=== PATIENT | female | born 1970 | race Caucasian/White ===

== ENCOUNTER 2019-05-26 10:14 | Inpatient (IN) | payer OTHER ==
[2019-05-26 11:21] VITALS: BMI 50.1
--- NOTE | 2019-05-26 12:54 | HP ---
CIWA Score Nausea/Vomitin Muscle Tremors: 3 Anxiety: 3 Agitation: 3 Paroxysmal Sweats: 1-Minimal Palms Moist Orientation: 0-Oriented Tacttile Disturbances: 1-Very Mild Itch/Numbness Auditory Disturbances: 0-None Visual Disturbances: 0-None Headache: 2-Mild CIWA-Ar Total Score: 15 - Admission Criteria OASAS Guidelines: Admission for Medically Managed Detox: Requires at least one of the followin. CIWA greater than 12 2. Seizures within the past 24 hours 3. Delirium tremens within the past 24 hours 4. Hallucinations within the past 24 hours 5. Acute intervention needed for co occurring medical disorder 6. Acute intervention needed for co occurring psychiatric disorder 7. Severe withdrawal that cannot be handled at a lower level of care (continued vomiting, continued diarrhea, abnormal vital signs) requiring intravenous medication and/or fluids 8. 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 Cardiovascular: Yes: HTN, Hyperlipdemia Pulmonary: Yes: Asthma, Other ...LMP: 04/05/19 ...: No Psych: Yes: Depression - Past Surgical History Additional Past Surgical History: lung surgery right with chest tube for pneumonia in 07/10 [facility], in 07/10 and [facility] arthroscopic surgery in 11/07 left knee - Smoking History Smoking history: Current every day smoker Have you smoked in the past 12 months: Yes Aproximately how many cigarettes per day: 5 - Alcohol/Substance Use Hx Alcohol Use: Yes History of Substance Use: reports: None - Social History Usual Living Arrangement: Yes: With Significant Other ADL: Independent History of Recent Travel: No Admission ROS S - HPI Chief Complaint: I need help to stop drinking alcohol Allergies/Adverse Reactions: Allergies Allergy/AdvReac Type Severity Reaction Status Date / Time No Known Allergies Allergy Verified 05/26/19 11:15 History of Present Illness: this 48 years old female with alcohol dependence,seeking detox,withdrawal symptom,last detox 10 years ago syncope denied seizure obesity hypertension,hypercholesterolemia longest sobriety 10 years history of right lung surgery,arthroscopic surgery left knee ambulation with cane - Ebola screening Have you traveled outside of the country in the last 21 days: No (N) Have you had contact with anyone from an Ebola affected area: No Do you have a fever: No - Review of Systems Constitutional: Night Sweats EENT: reports: Nose Congestion Respiratory: reports: Other (asthma surger of right lung) Cardiac: reports: Palpitations GI: reports: Nausea, Poor Appetite, Abdominal cramping : reports: No Symptoms Reported Musculoskeletal: reports: Back Pain (arthritis both knees s/p arthroscopic surgery left knee), Muscle Pain Integumentary: reports: Dryness Neuro: reports: Headache, Tremors Endocrine: reports: No Symptoms Reported Hematology: reports: No Symptoms Reported Psychiatric: reports: No Sypmtoms Reported, Judgement Intact, Mood/Affect Appropiate, Orientated x3, Depressed Other Systems: Reviewed and Negative Patient History - Patient Medical History Hx Anemia: No Hx Asthma: Yes (on albuterol inhaler) Hx Chronic Obstructive Pulmonary Disease (COPD): No Hx Cancer: No Hx Cardiac Disorders: No Hx Congestive Heart Failure: No Hx Hypertension: Yes (on med) Hx Hypercholesterolemia: Yes (on med) Hx Pacemaker: No HX Cerebrovascular Accident: No Hx Seizures: No Hx Dementia: No Hx Diabetes: No Hx Gastrointestinal Disorders: No Hx Liver Disease: No Hx Genitourinary Disorders: No Hx Sexually Transmitted Disorders: No Hx Renal Disease (ESRD): No Hx Thyroid Disease: No Hx Human Immunodeficiency Virus (HIV): No (09/07 negative) Hx Hepatitis C: No Hx Depression: Yes Hx Suicide Attempt: No Hx Bipolar Disorder: No Hx Schizophrenia: No Other Medical History: no suicidal,no homicidal,arthritis ,s/p suery left knee, right lung surgery - Patient Surgical History Past Surgical History: Yes Hx Lung Surgery: Yes (right post pneumona,chest tubes) Hx Orthopedic Surgery: Yes (arthroscopic surgery left) - PPD History Previous Implant?: Yes Documented Results: Positive w/o proof Implanted On Prior R Admission?: No PPD to be Administered?: No - Reproductive History Patient is a Female of Child Bearing Age (11 -55 yrs old): Yes Last Menstrual Period: 03/05/19 Patient : No - Smoking Cessation Smoking history: Current every day smoker Have you smoked in the past 12 months: Yes Aproximately how many cigarettes per day: 10 Cigars Per Day: 0 Initiated information on smoking cessation: Yes 'Breaking Loose' booklet given: 05/27/19 - Substance & Tx. History Hx Alcohol Use: Yes Hx Substance Use: No Substance Use Type: Alcohol Hx Substance Use Treatment: Yes (2008) - Substances abused Alcohol Substance route: Oral Frequency: Daily Amount used: 2qts of Marnie/day Age of first use: 14 Date of last use: 05/26/19 Admission Physical Exam [facility] - Vital Signs Vital Signs: Vital Signs - 24 hr 05/26/19 11:17 Temperature 97.6 F Pulse Rate 101 H Respiratory 18 Rate Blood Pressure 146/94 - Physical General Appearance: Yes: Moderate Distress, Tremorous, Irritable, Sweating, Anxious HEENTM: Yes: Normal ENT Inspection, KANWAL, Pharynx Normal Respiratory: Yes: Wheezing, Surgical Scar (scar in right chest posterior scar bilaterl chest tubes) Neck: Yes: No masses,lesions,Nodules, Supple, Trachea in good position Breast: Yes: Breast Exam Deferred Cardiology: Yes: Tachycardia Abdominal: Yes: Within Normal Limits, Normal Bowel Sounds, Non Tender, Soft Genitourinary: Yes: Within Normal Limits Back: Yes: Muscle Spasm Musculoskeletal: Yes: Back pain, Joint Stiffness, Muscle Pain Extremities: Yes: Tremors 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 intact, Fully Oriented, Alert, Motor Strength 5/5 Integumentary: Yes: Dry Lymphatic: Yes: Within Normal Limits - Diagnostic (1) Alcohol dependence with uncomplicated withdrawal Current Visit: Yes Status: Acute (2) Syncope Current Visit: Yes Status: Acute (3) Obesity Current Visit: Yes Status: Acute (4) Essential hypertension Current Visit: Yes Status: Acute (5) Hypercholesterolemia Current Visit: Yes Status: Acute (6) Asthma Current Visit: Yes Status: Acute (7) Arthritis of both knees Current Visit: Yes Status: Acute (8) H/O left knee surgery Current Visit: Yes Status: Acute (9) Nicotine dependence Current Visit: Yes Status: Acute (10) Use of cane as ambulatory aid Current Visit: Yes Status: Acute Cleared for Admission [facility] - Detox or Rehab [facility] Level of Care: Medically Managed Detox Regimen/Protocol: Librium Breathalyzer - Breathalyzer Breathalyzer: 0.205 Urine Drug Screen - Test Device Lot number: [id number] Expiration date: 02/18/21 - Control Is test valid?: Yes - Results Drug screen NEGATIVE: Yes Inpatient Rehab Admission - Rehab Decision to Admit Inpatient rehab admission?: No
[2019-05-26] MEDS ORDERED: chlordiazePOXIDE HCL 25 MG CAPSULE PO PRN (13:24)
[2019-05-26] MEDS ORDERED: MENTHOL/PHENOL 1 EACH UD MM PRN (13:24)
[2019-05-26] MEDS ORDERED: MAG HYDROX/AL HYDROX/SIMETH 30 ML UNIT-DOSE CUP PO PRN (13:24)
[2019-05-26] MEDS ORDERED: ACETAMINOPHEN 325 MG TABLET (FP) PO PRN (13:24)
[2019-05-26] MEDS ORDERED: MAGNESIUM HYDROX 2400MG/30ML ORAL SUSPENSION 30 ML CUP PO PRN (13:24)
[2019-05-26] MEDS ORDERED: MAGNESIUM CITRATE 300 ML BOTTLE PO PRN (13:24)
[2019-05-26] MEDS ORDERED: predniSONE 20 MG TABLET (UD) PO ONE ×2 (13:31→13:35)
[2019-05-26] MEDS ORDERED: ALBUTEROL SO4 2.5/IPRATROPIUM 0.5 INH SOL 3 ML VIAL.NEB. NEB PRN (13:31)
[2019-05-26] MEDS ORDERED: predniSONE 10 MG TABLET (UD) PO ONE (13:32)
[2019-05-26] MEDS: LISINOPRIL 10 MG TABLET (FP) PO SCH (14:59)
[2019-05-26] MEDS: NICOTINE 14 MG/24 HOURS TOPICAL PATCH TD SCH (15:00)
[2019-05-26] MEDS: chlordiazePOXIDE HCL 25 MG CAPSULE PO SCH ×2 (17:28→22:18)
[2019-05-26] MEDS: ALBUTEROL SO4 8 GM HFA INHALER IH PRN (21:35)
[2019-05-26] MEDS: ATORVASTATIN CA 20 MG TABLET (FP) PO SCH (22:18)
[2019-05-26] MEDS: THIAMINE HCL 100 MG TABLET (FP) PO SCH (22:18)
[2019-05-26] MEDS: MELATONIN 5 MG TABLETS PO PRN (22:19)
[2019-05-27] MEDS: chlordiazePOXIDE HCL 25 MG CAPSULE PO SCH ×4 (05:46→22:22)
[2019-05-27] MEDS: ALBUTEROL SO4 8 GM HFA INHALER IH PRN ×2 (05:48→17:09)
[2019-05-27 09:56] LABS: HEMATOCRIT 41.7 % (32.4-45.2); HEMOGLOBIN 13.7 GM/dL (10.7-15.3); MCH 29.5 pg (25.7-33.7); MCHC 32.9 g/dl (32.0-36.0); MEAN CELL VOLUME 89.8 fl (80-96); MEAN PLT VOLUME 9.4 fl (7.5-11.1); PLATELET COUNT 190 K/MM3 (134-434); RBC 4.65 M/mm3 (3.60-5.2); RDW 14.6 % (11.6-15.6); WHITE BLOOD COUNT 7.3 K/mm3 (4.0-10.0)
[2019-05-27] MEDS ORDERED: predniSONE 20 MG TABLET (UD) PO ONE (10:00)
[2019-05-27] MEDS ORDERED: predniSONE 10 MG TABLET (UD) PO ONE (10:00)
[2019-05-27 10:04] LABS: ALBUMIN 3.3 g/dl (3.4-5.0); BILIRUBIN,TOTAL 0.6 mg/dL (0.2-1); BLOOD UREA NITROGEN 17.6 mg/dL (7-18); CREATININE 0.8 mg/dL (0.55-1.3); POTASSIUM 3.4 mmol/L (3.5-5.1); TOT PROT 7.4 g/dl (6.4-8.2)
--- NOTE | 2019-05-27 10:09 | EKG ---
Test Reason : Blood Pressure : / mmHG Vent. Rate : 101 BPM Atrial Rate : 101 BPM P-R Int : 166 ms QRS Dur : 094 ms QT Int : 372 ms P-R-T Axes : 064 071 048 degrees QTc Int : 482 ms SINUS TACHYCARDIA OTHERWISE NORMAL ECG NO PREVIOUS ECGS AVAILABLE Confirmed by EHSAN PALMER MD ([id number]) on 05/27/2019 10:08:50 AM Referred By: Eulalio Marina Confirmed By:EHSAN PALMER MD
--- NOTE | 2019-05-27 10:23 | PN ---
S CIWA - CIWA Score Nausea/Vomitin-Mild Nausea/No Vomiting Muscle Tremors: 4-Moderate,w/Arms Extend Anxiety: 3 Agitation: 1-Slight > Activity Paroxysmal Sweats: 2 Orientation: 1-Uncertain about Date Tacttile Disturbances: 0-None Auditory Disturbances: 0-None Visual Disturbances: 0-None Headache: 1-Very Mild CIWA-Ar Total Score: 13 BHS Progress Note (SOAP) Subjective: 48 years old female admitted on 05/26/19 for alcohol withdrawal sx management treating with librium detox regimen ambulating with cane steady gait reports skip antihypertensant while drinking alcohol health teaching on risks of bp elevation Objective: 05/27/19 10:22 Vital Signs Temperature 98.1 F 05/27/19 09:09 Pulse Rate 110 H 05/27/19 09:09 Respiratory Rate 18 05/27/19 09:09 Blood Pressure 149/84 05/27/19 09:09 O2 Sat by Pulse Oximetry (%) Laboratory Last Values WBC 7.3 K/mm3 (4.0-10.0) 05/27/19 08:15 RBC 4.65 M/mm3 (3.60-5.2) 05/27/19 08:15 Hgb 13.7 GM/dL (10.7-15.3) 05/27/19 08:15 Hct 41.7 % (32.4-45.2) 05/27/19 08:15 MCV 89.8 fl (80-96) 05/27/19 08:15 MCH 29.5 pg (25.7-33.7) 05/27/19 08:15 MCHC 32.9 g/dl (32.0-36.0) 05/27/19 08:15 RDW 14.6 % (11.6-15.6) 05/27/19 08:15 Plt Count 190 K/MM3 (134-434) 05/27/19 08:15 MPV 9.4 fl (7.5-11.1) 05/27/19 08:15 Sodium 137 mmol/L (136-145) 05/27/19 08:15 Potassium 3.4 mmol/L (3.5-5.1) L 05/27/19 08:15 Chloride 99 mmol/L (98-107) 05/27/19 08:15 Carbon Dioxide 29 mmol/L (21-32) 05/27/19 08:15 Anion Gap 9 MMOL/L (8-16) 05/27/19 08:15 BUN 17.6 mg/dL (7-18) 05/27/19 08:15 Creatinine 0.8 mg/dL (0.55-1.3) 05/27/19 08:15 Est GFR (CKD-EPI)AfAm 100.33 05/27/19 08:15 Est GFR (CKD-EPI)NonAf 86.57 05/27/19 08:15 Random Glucose 172 mg/dL (74-106) H 05/27/19 08:15 Calcium 9.0 mg/dL (8.5-10.1) 05/27/19 08:15 Total Bilirubin 0.6 mg/dL (0.2-1) 05/27/19 08:15 AST 33 U/L (15-37) 05/27/19 08:15 ALT 49 U/L (13-61) 05/27/19 08:15 Alkaline Phosphatase 134 U/L (45-117) H 05/27/19 08:15 Total Protein 7.4 g/dl (6.4-8.2) 05/27/19 08:15 Albumin 3.3 g/dl (3.4-5.0) L 05/27/19 08:15 Triglycerides 351 mg/dL (0-150) H 05/27/19 08:15 Cholesterol 147 mg/dL (50-200) 05/27/19 08:15 Total LDL Cholesterol 36 mg/dL (5-100) 05/27/19 08:15 HDL Cholesterol 51 mg/dL (40-60) 05/27/19 08:15 POC Urine HCG, Qual Negative 05/26/19 13:24 lab noted triglycerides elevation treating with lipitor 20 mg po hs 05/27/19 10:24 Assessment: 05/27/19 10:24 alcohol withdrawal Plan: librium regimen
[2019-05-27] MEDS: LISINOPRIL 10 MG TABLET (FP) PO SCH (10:51)
[2019-05-27] MEDS: NICOTINE 14 MG/24 HOURS TOPICAL PATCH TD SCH (10:51)
[2019-05-27] MEDS: PRENATAL VITAMINS W/ FOLIC ACID TABLET (FP) PO SCH (10:51)
[2019-05-27] MEDS: amLODIPine BESYLATE 10 MG TABLET (FP) PO SCH (10:51)
[2019-05-27] MEDS ORDERED: cloNIDine HCL 0.1 MG TABLET PO PRN (11:04)
[2019-05-27] MEDS ORDERED: PNEUMOCOCCAL 23 VACCINE 0.5 ML VIAL IM ONE (12:00)
[2019-05-27] MEDS ORDERED: PNEUMOC 13-VAL CONJ-DIP CRM/PF 0.5 ML DISP.SYRIN IM ONE (12:00)
--- NOTE | 2019-05-27 15:04 | CONSULT ---
[facility] Psychiatric Consult - Data Date of interview: 05/27/19 Admission source: [facility] Identifying data: First visit to [facility] and admission to [address] [place] [address] for this 48 y/o female self-referred for detoxification treatment (ESDRAS issue s : alcohol, nicotine). Patient is single, mother of two, domiciled and currently employed. Substance Abuse History: Discussed with the patient. Details in current [facility] report as follows : Smoking history: Current every day smoker. Have you smoked in the past 12 months: Yes. Aproximately how many cigarettes per day: 10. Cigars Per Day: 0. Initiated information on smoking cessation: Yes. 'Breaking Loose' booklet given: 05/27/19. - Substance & Tx. History. Hx Alcohol Use: Yes. Hx Substance Use: No. Substance Use Type: Alcohol. Hx Substance Use Treatment: Yes (2008). - Substances abused. Alcohol. Substance route: Oral. Frequency: Daily. Amount used: 2qts of Marnie/day. Age of first use: 14. Date of last use: 05/26/19 Medical History: Medical profile is remarkable for morbid obesity, dyslipidemia , bronchial asthma, hypertension, sleep apnea, antecedent of right lung surgery (pneumonia in 2019) and orthosurgery (arthroscopy of left knee). Patient ambulates with a cane. Psychiatric History: Patient denies history of psychiatric hospitalizations. Diagnosed, in the past, with MDD and Anxiety Disorder, and medicated with citalopram 20 mg/day (prescribed by Dr Riojas, primary care physician at [facility] Ms Shelton admits to a distant history of suicide attempt via wrist-cutting (age 17). Physical/Sexual Abuse/Trauma History: Patient denies. Additional Comment: Negative toxicology. Mental Status Exam - Mental Status Exam Alert and Oriented to: Time, Place, Person Cognitive Function: Good Patient Appearance: Well Groomed (obese) Mood: Hopeful, Euthymic Affect: Appropriate, Normal Range Patient Behavior: Fatigued, Appropriate, Cooperative Speech Pattern: Clear, Appropriate Voice Loudness: Normal Thought Process: Intact, Goal Oriented Thought Disorder: Not Present Hallucinations: Denies Suicidal Ideation: Denies Homicidal Ideation: Denies Insight/Judgement: Fair Sleep: Well Appetite: Good Gait/Station: Other (walks witth cane) Psychiatric Findings - Problem List ([place] 1, 2,3) (1) Alcohol dependence with uncomplicated withdrawal Current Visit: Yes Status: Acute (2) Nicotine dependence Current Visit: Yes Status: Chronic (3) History of depression Current Visit: Yes Status: Chronic Comment: On citalopram 20 mg/day. - Initial Treatment Plan Initial Treatment Plan: Psychoeducation. Sleep hygiene. Detoxification in progress. Support. AA meetings. MAT services explained to patient. Resumed : celexa 20 mg po daily. Side effects/benefits discussed with patient. Ms Shelton is in agreement with this plan of care. Gave informed consent (verbal) to MD. Lao.
[2019-05-27 15:13] LABS: EPI CELLS 33.5 /HPF (0-5/HPF); HYALINE CASTS 22 /lpf (0-8); PH,URINE 6.5 (5.0-8.0); URINE APPEARANCE CLOUDY; URINE BACTERIA 906.8 /hpf (NEGATIVE); URINE BILIRUBIN NEGATIVE (NEGATIVE); URINE COLOR DK YELLOW; URINE GLUCOSE (UA) NEGATIVE (NEGATIVE); URINE KETONE TRACE (NEGATIVE); URINE LEUK ESTERASE NEGATIVE (NEGATIVE); URINE NITRITE NEGATIVE (NEGATIVE); URINE PROTEIN 1+ (NEGATIVE); URINE RBC 3 /hpf (0-4); URINE WBC 4 /hpf (0-5)
[2019-05-27 15:44] LABS: URINE CRYSTALS NEGATIVE /hpf
[2019-05-27] MEDS: hydrOXYzine PAMOATE 25 MG CAPSULE (FP) PO PRN (17:09)
[2019-05-27] MEDS: MELATONIN 5 MG TABLETS PO PRN (22:22)
[2019-05-27] MEDS: THIAMINE HCL 100 MG TABLET (FP) PO SCH (22:22)
[2019-05-27] MEDS: ATORVASTATIN CA 20 MG TABLET (FP) PO SCH (22:22)
[2019-05-28] MEDS: chlordiazePOXIDE HCL 25 MG CAPSULE PO SCH ×4 (05:16→22:09)
[2019-05-28] MEDS ORDERED: predniSONE 20 MG TABLET (UD) PO ONE (10:00)
[2019-05-28] MEDS: CITALOPRAM HYDROBROMIDE 20 MG TABLET (FP) PO SCH (10:12)
[2019-05-28] MEDS: amLODIPine BESYLATE 10 MG TABLET (FP) PO SCH (10:12)
[2019-05-28] MEDS: PRENATAL VITAMINS W/ FOLIC ACID TABLET (FP) PO SCH (10:12)
[2019-05-28] MEDS: LISINOPRIL 10 MG TABLET (FP) PO SCH (10:12)
[2019-05-28] MEDS: ALBUTEROL SO4 8 GM HFA INHALER IH PRN (10:14)
[2019-05-28] MEDS: NICOTINE 14 MG/24 HOURS TOPICAL PATCH TD SCH (10:14)
[2019-05-28] MEDS ORDERED: LOPERAMIDE HCL 2 MG CAPSULE PO ONE (10:18)
[2019-05-28] MEDS: BISMUTH SUBSALICYLATE 524 MG/30 ML UD PO PRN ×2 (10:23→22:11)
--- NOTE | 2019-05-28 12:12 | PN ---
[facility] CIWA - CIWA Score Nausea/Vomitin-No Nausea/No Vomiting Muscle Tremors: 3 Anxiety: 3 Agitation: 2 Paroxysmal Sweats: 2 Orientation: 0-Oriented Tacttile Disturbances: 0-None Auditory Disturbances: 0-None Visual Disturbances: 0-None Headache: 0-None Present CIWA-Ar Total Score: 10 S Progress Note (SOAP) Subjective: 48 years old female admitted on 05/26/19 for alcohol withdrawal sx management treating with librium detox regimen c/o loose stool imodium 4 mg po x 1 and maalox 30 ml po x 1 continue pepcid 20mg po bid Objective: 05/28/19 12:23 Vital Signs Temperature 97.0 F L 05/28/19 09:25 Pulse Rate 78 05/28/19 09:25 Respiratory Rate 18 05/28/19 09:25 Blood Pressure 149/96 05/28/19 09:25 O2 Sat by Pulse Oximetry (%) Laboratory Last Values WBC 7.3 K/mm3 (4.0-10.0) 05/27/19 08:15 RBC 4.65 M/mm3 (3.60-5.2) 05/27/19 08:15 Hgb 13.7 GM/dL (10.7-15.3) 05/27/19 08:15 Hct 41.7 % (32.4-45.2) 05/27/19 08:15 MCV 89.8 fl (80-96) 05/27/19 08:15 MCH 29.5 pg (25.7-33.7) 05/27/19 08:15 MCHC 32.9 g/dl (32.0-36.0) 05/27/19 08:15 RDW 14.6 % (11.6-15.6) 05/27/19 08:15 Plt Count 190 K/MM3 (134-434) 05/27/19 08:15 MPV 9.4 fl (7.5-11.1) 05/27/19 08:15 Sodium 137 mmol/L (136-145) 05/27/19 08:15 Potassium 3.4 mmol/L (3.5-5.1) L 05/27/19 08:15 Chloride 99 mmol/L (98-107) 05/27/19 08:15 Carbon Dioxide 29 mmol/L (21-32) 05/27/19 08:15 Anion Gap 9 MMOL/L (8-16) 05/27/19 08:15 BUN 17.6 mg/dL (7-18) 05/27/19 08:15 Creatinine 0.8 mg/dL (0.55-1.3) 05/27/19 08:15 Est GFR (CKD-EPI)AfAm 100.33 05/27/19 08:15 Est GFR (CKD-EPI)NonAf 86.57 05/27/19 08:15 Random Glucose 172 mg/dL (74-106) H 05/27/19 08:15 Calcium 9.0 mg/dL (8.5-10.1) 05/27/19 08:15 Total Bilirubin 0.6 mg/dL (0.2-1) 05/27/19 08:15 AST 33 U/L (15-37) 05/27/19 08:15 ALT 49 U/L (13-61) 05/27/19 08:15 Alkaline Phosphatase 134 U/L (45-117) H 05/27/19 08:15 Total Protein 7.4 g/dl (6.4-8.2) 05/27/19 08:15 Albumin 3.3 g/dl (3.4-5.0) L 05/27/19 08:15 Triglycerides 351 mg/dL (0-150) H 05/27/19 08:15 Cholesterol 147 mg/dL (50-200) 05/27/19 08:15 Total LDL Cholesterol 36 mg/dL (5-100) 05/27/19 08:15 HDL Cholesterol 51 mg/dL (40-60) 05/27/19 08:15 Urine Color Dk yellow 05/27/19 10:45 Urine Appearance Cloudy 05/27/19 10:45 Urine pH 6.5 (5.0-8.0) 05/27/19 10:45 Ur Specific [place] 1.039 (1.010-1.035) H 05/27/19 10:45 Urine Protein 1+ (NEGATIVE) H 05/27/19 10:45 Urine Glucose (UA) Negative (NEGATIVE) 05/27/19 10:45 Urine Ketones Trace (NEGATIVE) H 05/27/19 10:45 Urine Blood Negative (NEGATIVE) 05/27/19 10:45 Urine Nitrite Negative (NEGATIVE) 05/27/19 10:45 Urine Bilirubin Negative (NEGATIVE) 05/27/19 10:45 Urine Urobilinogen 1.0 mg/dL (0.2-1.0) 05/27/19 10:45 Ur Leukocyte Esterase Negative (NEGATIVE) 05/27/19 10:45 Urine WBC (Auto) 4 /hpf (0-5) 05/27/19 10:45 Urine RBC (Auto) 3 /hpf (0-4) 05/27/19 10:45 Urine Casts (Auto) 22 /lpf (0-8) 05/27/19 10:45 U Pathogenic Cast Auto Negative /lpf (NEGATIVE) 05/27/19 10:45 U Epithel Cells (Auto) 33.5 /HPF (0-5/HPF) 05/27/19 10:45 Urine Crystals (Auto) Negative /hpf 05/27/19 10:45 Urine Bacteria (Auto) 906.8 /hpf (NEGATIVE) 05/27/19 10:45 POC Urine HCG, Qual Negative 05/26/19 13:24 RPR Titer Nonreactive (NONREACTIVE) 05/27/19 08:15 lab noted Assessment: 05/28/19 12:26 alcohol withdrawal Plan: librium regimen
[2019-05-28] MEDS ORDERED: MAG HYDROX/AL HYDROX/SIMETH 30 ML UNIT-DOSE CUP PO ONE (12:32)
[2019-05-28] MEDS: FAMOTIDINE 20 MG TABLET PO SCH ×2 (15:07→22:08)
[2019-05-28] MEDS ORDERED: LOPERAMIDE HCL 2 MG CAPSULE PO PRN (17:40)
[2019-05-28] MEDS: THIAMINE HCL 100 MG TABLET (FP) PO SCH (22:08)
[2019-05-28] MEDS: ATORVASTATIN CA 20 MG TABLET (FP) PO SCH (22:08)
[2019-05-28] MEDS: MELATONIN 5 MG TABLETS PO PRN (22:10)
[2019-05-29] MEDS ORDERED: chlordiazePOXIDE HCL 10 MG CAPSULE PO PRN
[2019-05-29] MEDS: chlordiazePOXIDE HCL 10 MG CAPSULE PO SCH ×4 (05:22→22:30)
[2019-05-29] MEDS: ALBUTEROL SO4 8 GM HFA INHALER IH PRN (05:22)
[2019-05-29] MEDS ORDERED: predniSONE 10 MG TABLET (UD) PO ONE (10:00)
[2019-05-29] MEDS: LIDOCAINE 5% TOPICAL PATCH TP SCH (10:09)
[2019-05-29] MEDS: FAMOTIDINE 20 MG TABLET PO SCH ×2 (10:09→22:30)
[2019-05-29] MEDS: LISINOPRIL 10 MG TABLET (FP) PO SCH (10:09)
[2019-05-29] MEDS: NICOTINE 14 MG/24 HOURS TOPICAL PATCH TD SCH (10:09)
[2019-05-29] MEDS: amLODIPine BESYLATE 10 MG TABLET (FP) PO SCH (10:09)
[2019-05-29] MEDS: CITALOPRAM HYDROBROMIDE 20 MG TABLET (FP) PO SCH (10:10)
[2019-05-29] MEDS: PRENATAL VITAMINS W/ FOLIC ACID TABLET (FP) PO SCH (10:10)
--- NOTE | 2019-05-29 11:48 | PN ---
S CIWA - CIWA Score Nausea/Vomitin-No Nausea/No Vomiting Muscle Tremors: 2 Anxiety: 2 Agitation: 2 Paroxysmal Sweats: 1-Minimal Palms Moist Orientation: 0-Oriented Tacttile Disturbances: 1-Very Mild Itch/Numbness Auditory Disturbances: 0-None Visual Disturbances: 0-None Headache: 1-Very Mild CIWA-Ar Total Score: 9 BHS Progress Note (SOAP) Subjective: 48 years old male admitted on 05/26/19 for alcohol withdrawal sx management treating with librium detox regimen reports chronic lower lumbar pain ambulating with cane had anger outburst episode x 1 consult with multidisciplinary team redirectable follow instruction Objective: 05/29/19 11:55 Vital Signs Temperature 97.4 F L 05/29/19 09:11 Pulse Rate 107 H 05/29/19 09:11 Respiratory Rate 20 05/29/19 09:11 Blood Pressure 129/86 05/29/19 09:11 O2 Sat by Pulse Oximetry (%) Laboratory Last Values WBC 7.3 K/mm3 (4.0-10.0) 05/27/19 08:15 RBC 4.65 M/mm3 (3.60-5.2) 05/27/19 08:15 Hgb 13.7 GM/dL (10.7-15.3) 05/27/19 08:15 Hct 41.7 % (32.4-45.2) 05/27/19 08:15 MCV 89.8 fl (80-96) 05/27/19 08:15 MCH 29.5 pg (25.7-33.7) 05/27/19 08:15 MCHC 32.9 g/dl (32.0-36.0) 05/27/19 08:15 RDW 14.6 % (11.6-15.6) 05/27/19 08:15 Plt Count 190 K/MM3 (134-434) 05/27/19 08:15 MPV 9.4 fl (7.5-11.1) 05/27/19 08:15 Sodium 137 mmol/L (136-145) 05/27/19 08:15 Potassium 3.4 mmol/L (3.5-5.1) L 05/27/19 08:15 Chloride 99 mmol/L (98-107) 01/06/20 08:15 Carbon Dioxide 29 mmol/L (21-32) 05/27/19 08:15 Anion Gap 9 MMOL/L (8-16) 05/27/19 08:15 BUN 17.6 mg/dL (7-18) 05/27/19 08:15 Creatinine 0.8 mg/dL (0.55-1.3) 05/27/19 08:15 Est GFR (CKD-EPI)AfAm 100.33 05/27/19 08:15 Est GFR (CKD-EPI)NonAf 86.57 05/27/19 08:15 Random Glucose 172 mg/dL (74-106) H 05/27/19 08:15 Calcium 9.0 mg/dL (8.5-10.1) 05/27/19 08:15 Total Bilirubin 0.6 mg/dL (0.2-1) 05/27/19 08:15 AST 33 U/L (15-37) 05/27/19 08:15 ALT 49 U/L (13-61) 05/27/19 08:15 Alkaline Phosphatase 134 U/L (45-117) H 05/27/19 08:15 Total Protein 7.4 g/dl (6.4-8.2) 05/27/19 08:15 Albumin 3.3 g/dl (3.4-5.0) L 05/27/19 08:15 Triglycerides 351 mg/dL (0-150) H 05/27/19 08:15 Cholesterol 147 mg/dL (50-200) 05/27/19 08:15 Total LDL Cholesterol 36 mg/dL (5-100) 05/27/19 08:15 HDL Cholesterol 51 mg/dL (40-60) 05/27/19 08:15 Urine Color Dk yellow 05/27/19 10:45 Urine Appearance Cloudy 05/27/19 10:45 Urine pH 6.5 (5.0-8.0) 05/27/19 10:45 Ur Specific [place] 1.039 (1.010-1.035) H 05/27/19 10:45 Urine Protein 1+ (NEGATIVE) H 05/27/19 10:45 Urine Glucose (UA) Negative (NEGATIVE) 05/27/19 10:45 Urine Ketones Trace (NEGATIVE) H 05/27/19 10:45 Urine Blood Negative (NEGATIVE) 05/27/19 10:45 Urine Nitrite Negative (NEGATIVE) 05/27/19 10:45 Urine Bilirubin Negative (NEGATIVE) 05/27/19 10:45 Urine Urobilinogen 1.0 mg/dL (0.2-1.0) 05/27/19 10:45 Ur Leukocyte Esterase Negative (NEGATIVE) 05/27/19 10:45 Urine WBC (Auto) 4 /hpf (0-5) 05/27/19 10:45 Urine RBC (Auto) 3 /hpf (0-4) 05/27/19 10:45 Urine Casts (Auto) 22 /lpf (0-8) 05/27/19 10:45 U Pathogenic Cast Auto Negative /lpf (NEGATIVE) 05/27/19 10:45 U Epithel Cells (Auto) 33.5 /HPF (0-5/HPF) 05/27/19 10:45 Urine Crystals (Auto) Negative /hpf 05/27/19 10:45 Urine Bacteria (Auto) 906.8 /hpf (NEGATIVE) 05/27/19 10:45 POC Urine HCG, Qual Negative 05/26/19 13:24 RPR Titer Nonreactive (NONREACTIVE) 05/27/19 08:15 lab noted Assessment: 05/29/19 11:56 alcohol withdrawal Plan: librum regimen
[2019-05-29] MEDS ORDERED: ALBUTEROL SO4 2.5/IPRATROPIUM 0.5 INH SOL 3 ML VIAL.NEB. NEB PRN (13:58)
[2019-05-29] MEDS: IBUPROFEN 400 MG TABLET (FP) PO PRN ×2 (14:38→22:32)
[2019-05-29] MEDS: METHOCARBAMOL 500 MG TABLET PO PRN ×2 (14:39→22:33)
[2019-05-29] MEDS: ACETAMINOPHEN 325 MG TABLET (FP) PO PRN (17:20)
[2019-05-29] MEDS: THIAMINE HCL 100 MG TABLET (FP) PO SCH (22:30)
[2019-05-29] MEDS: ATORVASTATIN CA 20 MG TABLET (FP) PO SCH (22:30)
[2019-05-29] MEDS: LIDOCAINE PATCH REMOVAL MC SCH (22:30)
[2019-05-29] MEDS: MELATONIN 5 MG TABLETS PO PRN (22:35)
[2019-05-30] MEDS: chlordiazePOXIDE HCL 10 MG CAPSULE PO SCH ×2 (06:38→17:49)
[2019-05-30] MEDS: METHOCARBAMOL 500 MG TABLET PO PRN ×3 (07:29→22:11)
[2019-05-30] MEDS: IBUPROFEN 400 MG TABLET (FP) PO PRN (07:29)
[2019-05-30] MEDS: hydrOXYzine PAMOATE 25 MG CAPSULE (FP) PO PRN (07:29)
[2019-05-30] MEDS ORDERED: predniSONE 5 MG TABLET (UD) PO ONE (10:00)
[2019-05-30] MEDS: PRENATAL VITAMINS W/ FOLIC ACID TABLET (FP) PO SCH (10:13)
[2019-05-30] MEDS: amLODIPine BESYLATE 10 MG TABLET (FP) PO SCH (10:13)
[2019-05-30] MEDS: LISINOPRIL 10 MG TABLET (FP) PO SCH (10:13)
[2019-05-30] MEDS: CITALOPRAM HYDROBROMIDE 20 MG TABLET (FP) PO SCH (10:13)
[2019-05-30] MEDS: LIDOCAINE 5% TOPICAL PATCH TP SCH (10:13)
[2019-05-30] MEDS: FAMOTIDINE 20 MG TABLET PO SCH ×2 (10:13→22:09)
[2019-05-30] MEDS: NICOTINE 14 MG/24 HOURS TOPICAL PATCH TD SCH (10:14)
[2019-05-30] MEDS: ALBUTEROL SO4 8 GM HFA INHALER IH PRN (10:16)
--- NOTE | 2019-05-30 11:01 | PN ---
S CIWA - CIWA Score Nausea/Vomitin-No Nausea/No Vomiting Muscle Tremors: 3 Anxiety: 3 Agitation: 0-Normal Activity Paroxysmal Sweats: 2 Orientation: 0-Oriented Tacttile Disturbances: 1-Very Mild Itch/Numbness Auditory Disturbances: 0-None Visual Disturbances: 1-Very Mild Sensitivity Headache: 2-Mild CIWA-Ar Total Score: 12 S Progress Note (SOAP) Subjective: c/o of back pain, chills, body aches, sweats Objective: 05/30/19 10:59 Vital Signs Temperature 97.9 F 05/30/19 09:09 Pulse Rate 88 05/30/19 09:09 Respiratory Rate 16 05/30/19 09:09 Blood Pressure 146/92 05/30/19 09:09 O2 Sat by Pulse Oximetry (%) Laboratory Last Values WBC 7.3 K/mm3 (4.0-10.0) 05/27/19 08:15 RBC 4.65 M/mm3 (3.60-5.2) 05/27/19 08:15 Hgb 13.7 GM/dL (10.7-15.3) 05/27/19 08:15 Hct 41.7 % (32.4-45.2) 05/27/19 08:15 MCV 89.8 fl (80-96) 05/27/19 08:15 MCH 29.5 pg (25.7-33.7) 05/27/19 08:15 MCHC 32.9 g/dl (32.0-36.0) 05/27/19 08:15 RDW 14.6 % (11.6-15.6) 05/27/19 08:15 Plt Count 190 K/MM3 (134-434) 05/27/19 08:15 MPV 9.4 fl (7.5-11.1) 05/27/19 08:15 Sodium 137 mmol/L (136-145) 05/27/19 08:15 Potassium 3.4 mmol/L (3.5-5.1) L 05/27/19 08:15 Chloride 99 mmol/L (98-107) 05/27/19 08:15 Carbon Dioxide 29 mmol/L (21-32) 05/27/19 08:15 Anion Gap 9 MMOL/L (8-16) 05/27/19 08:15 BUN 17.6 mg/dL (7-18) 05/27/19 08:15 Creatinine 0.8 mg/dL (0.55-1.3) 05/27/19 08:15 Est GFR (CKD-EPI)AfAm 100.33 05/27/19 08:15 Est GFR (CKD-EPI)NonAf 86.57 05/27/19 08:15 POC Glucometer 118 UNITS (80-120) 05/30/19 06:34 Random Glucose 172 mg/dL (74-106) H 05/27/19 08:15 Calcium 9.0 mg/dL (8.5-10.1) 05/27/19 08:15 Total Bilirubin 0.6 mg/dL (0.2-1) 05/27/19 08:15 AST 33 U/L (15-37) 05/27/19 08:15 ALT 49 U/L (13-61) 05/27/19 08:15 Alkaline Phosphatase 134 U/L (45-117) H 05/27/19 08:15 Total Protein 7.4 g/dl (6.4-8.2) 05/27/19 08:15 Albumin 3.3 g/dl (3.4-5.0) L 05/27/19 08:15 Triglycerides 351 mg/dL (0-150) H 05/27/19 08:15 Cholesterol 147 mg/dL (50-200) 05/27/19 08:15 Total LDL Cholesterol 36 mg/dL (5-100) 05/27/19 08:15 HDL Cholesterol 51 mg/dL (40-60) 05/27/19 08:15 Urine Color Dk yellow 05/27/19 10:45 Urine Appearance Cloudy 05/27/19 10:45 Urine pH 6.5 (5.0-8.0) 05/27/19 10:45 Ur Specific [place] 1.039 (1.010-1.035) H 05/27/19 10:45 Urine Protein 1+ (NEGATIVE) H 05/27/19 10:45 Urine Glucose (UA) Negative (NEGATIVE) 05/27/19 10:45 Urine Ketones Trace (NEGATIVE) H 05/27/19 10:45 Urine Blood Negative (NEGATIVE) 05/27/19 10:45 Urine Nitrite Negative (NEGATIVE) 05/27/19 10:45 Urine Bilirubin Negative (NEGATIVE) 05/27/19 10:45 Urine Urobilinogen 1.0 mg/dL (0.2-1.0) 05/27/19 10:45 Ur Leukocyte Esterase Negative (NEGATIVE) 05/27/19 10:45 Urine WBC (Auto) 4 /hpf (0-5) 05/27/19 10:45 Urine RBC (Auto) 3 /hpf (0-4) 05/27/19 10:45 Urine Casts (Auto) 22 /lpf (0-8) 05/27/19 10:45 U Pathogenic Cast Auto Negative /lpf (NEGATIVE) 05/27/19 10:45 U Epithel Cells (Auto) 33.5 /HPF (0-5/HPF) 05/27/19 10:45 Urine Crystals (Auto) Negative /hpf 05/27/19 10:45 Urine Bacteria (Auto) 906.8 /hpf (NEGATIVE) 05/27/19 10:45 POC Urine HCG, Qual Negative 05/26/19 13:24 RPR Titer Nonreactive (NONREACTIVE) 05/27/19 08:15 Assessment: 05/30/19 11:00 Patient is Aox3 no acute distress lungs clear throughout, + cough non productive full ROM no gait disturbance ambulating in the unit asthma withdrawal sx Plan: increase fluids continue detox continue prednisone merlin key tx continue to monitor
--- NOTE | 2019-05-30 14:54 | PN ---
S Progress Note Note: c/o of chronic back pain worse today, no changes in ROM, getting around with cane on the unit reports takes naproxen at home for pain relief ibuprofen changed to naproxen prn continue to monitor
[2019-05-30] MEDS: NAPROXEN 500 MG TABLET (FP) PO SCH ×2 (15:57→22:09)
[2019-05-30] MEDS: MELATONIN 5 MG TABLETS PO PRN (22:09)
[2019-05-30] MEDS: THIAMINE HCL 100 MG TABLET (FP) PO SCH (22:09)
[2019-05-30] MEDS: ATORVASTATIN CA 20 MG TABLET (FP) PO SCH (22:09)
[2019-05-30] MEDS: LIDOCAINE PATCH REMOVAL MC SCH (22:11)
[2019-05-30 23:03] VITALS: TEMP 97
[2019-05-31] MEDS: ACETAMINOPHEN 325 MG TABLET (FP) PO PRN (00:49)
[2019-05-31] MEDS ORDERED: chlordiazePOXIDE HCL 10 MG CAPSULE PO ONE (05:00)
[2019-05-31] MEDS: METHOCARBAMOL 500 MG TABLET PO PRN (05:40)
--- NOTE | 2019-05-31 09:01 | DS ---
[facility] Detox Discharge Summary Admission Date: 05/26/19 Discharge Date: 05/31/19 - History Present History: Alcohol Dependence Additional Comments: Patient to follow with primary care provider at [facility] Dr. Riojas 2019, patient completed prednisone yesi while in detox, advise if worsening symptoms seek medical attention, verbalizes understanding. Pertinent Past History: Patient medically stable, tolerated detox well AOx3 no acute distress No SI/HI no adventitious breath sounds EENT WNL Full ROM ambulates with cane no edema or erythema - Physical Exam Results Vital Signs: Vital Signs Temperature 97 F L 05/31/19 06:11 Pulse Rate 87 05/31/19 06:11 Respiratory Rate 05/31/19 06:11 Blood Pressure 133/86 05/31/19 06:11 O2 Sat by Pulse Oximetry (%) Pertinent Admission Physical Exam Findings: Vital Signs Temperature 97 F L 05/31/19 06:11 Pulse Rate 87 05/31/19 06:11 Respiratory Rate 05/31/19 06:11 Blood Pressure 133/86 05/31/19 06:11 O2 Sat by Pulse Oximetry (%) Laboratory Last Values WBC 7.3 K/mm3 (4.0-10.0) 05/27/19 08:15 RBC 4.65 M/mm3 (3.60-5.2) 05/27/19 08:15 Hgb 13.7 GM/dL (10.7-15.3) 05/27/19 08:15 Hct 41.7 % (32.4-45.2) 05/27/19 08:15 MCV 89.8 fl (80-96) 05/27/19 08:15 MCH 29.5 pg (25.7-33.7) 05/27/19 08:15 MCHC 32.9 g/dl (32.0-36.0) 05/27/19 08:15 RDW 14.6 % (11.6-15.6) 05/27/19 08:15 Plt Count 190 K/MM3 (134-434) 05/27/19 08:15 MPV 9.4 fl (7.5-11.1) 05/27/19 08:15 Sodium 137 mmol/L (136-145) 05/27/19 08:15 Potassium 3.4 mmol/L (3.5-5.1) L 05/27/19 08:15 Chloride 99 mmol/L (98-107) 05/27/19 08:15 Carbon Dioxide 29 mmol/L (21-32) 05/27/19 08:15 Anion Gap 9 MMOL/L (8-16) 05/27/19 08:15 BUN 17.6 mg/dL (7-18) 05/27/19 08:15 Creatinine 0.8 mg/dL (0.55-1.3) 05/27/19 08:15 Est GFR (CKD-EPI)AfAm 100.33 05/27/19 08:15 Est GFR (CKD-EPI)NonAf 86.57 05/27/19 08:15 POC Glucometer 123 UNITS (80-120) 05/31/19 06:07 Random Glucose 172 mg/dL (74-106) H 05/27/19 08:15 Calcium 9.0 mg/dL (8.5-10.1) 05/27/19 08:15 Total Bilirubin 0.6 mg/dL (0.2-1) 05/27/19 08:15 AST 33 U/L (15-37) 05/27/19 08:15 ALT 49 U/L (13-61) 05/27/19 08:15 Alkaline Phosphatase 134 U/L (45-117) H 05/27/19 08:15 Total Protein 7.4 g/dl (6.4-8.2) 05/27/19 08:15 Albumin 3.3 g/dl (3.4-5.0) L 05/27/19 08:15 Triglycerides 351 mg/dL (0-150) H 05/27/19 08:15 Cholesterol 147 mg/dL (50-200) 05/27/19 08:15 Total LDL Cholesterol 36 mg/dL (5-100) 05/27/19 08:15 HDL Cholesterol 51 mg/dL (40-60) 05/27/19 08:15 Urine Color Dk yellow 05/27/19 10:45 Urine Appearance Cloudy 05/27/19 10:45 Urine pH 6.5 (5.0-8.0) 05/27/19 10:45 Ur Specific [place] 1.039 (1.010-1.035) H 05/27/19 10:45 Urine Protein 1+ (NEGATIVE) H 05/27/19 10:45 Urine Glucose (UA) Negative (NEGATIVE) 05/27/19 10:45 Urine Ketones Trace (NEGATIVE) H 05/27/19 10:45 Urine Blood Negative (NEGATIVE) 05/27/19 10:45 Urine Nitrite Negative (NEGATIVE) 05/27/19 10:45 Urine Bilirubin Negative (NEGATIVE) 05/27/19 10:45 Urine Urobilinogen 1.0 mg/dL (0.2-1.0) 05/27/19 10:45 Ur Leukocyte Esterase Negative (NEGATIVE) 05/27/19 10:45 Urine WBC (Auto) 4 /hpf (0-5) 05/27/19 10:45 Urine RBC (Auto) 3 /hpf (0-4) 05/27/19 10:45 Urine Casts (Auto) 22 /lpf (0-8) 05/27/19 10:45 U Pathogenic Cast Auto Negative /lpf (NEGATIVE) 05/27/19 10:45 U Epithel Cells (Auto) 33.5 /HPF (0-5/HPF) 05/27/19 10:45 Urine Crystals (Auto) Negative /hpf 05/27/19 10:45 Urine Bacteria (Auto) 906.8 /hpf (NEGATIVE) 05/27/19 10:45 POC Urine HCG, Qual Negative 05/26/19 13:24 RPR Titer Nonreactive (NONREACTIVE) 05/27/19 08:15 - Treatment Hospital Course: Detox Protocol Followed, Detoxed Safely, Responded well, Discharged Condition Good Patient has Accepted a Rehab Referral to: [facility] / Out Patient - Medication Discharge Medications: Ambulatory Orders Lisinopril 10 mg PO DAILY 05/26/19 Amlodipine Besylate [Norvasc -] 10 mg PO DAILY 05/27/19 Citalopram Hydrobromide [Celexa -] 20 mg PO DAILY 05/27/19 Albuterol Sulfate Inhaler - [Ventolin HFA Inhaler -] 2 puff IH Q4H PRN #1 inhaler 05/31/19 - Diagnosis (1) Alcohol dependence with uncomplicated withdrawal Current Visit: Yes Status: Acute (2) Arthritis of both knees Current Visit: Yes Status: Acute (3) Asthma Current Visit: Yes Status: Acute (4) Essential hypertension Current Visit: Yes Status: Acute (5) H/O left knee surgery Current Visit: Yes Status: Acute (6) Hypercholesterolemia Current Visit: Yes Status: Acute (7) Obesity Current Visit: Yes Status: Acute (8) Use of cane as ambulatory aid Current Visit: Yes Status: Acute (9) Nicotine dependence Current Visit: Yes Status: Chronic - AMA Did Patient Leave Against Medical Advice: No
[2019-05-31] MEDS: CITALOPRAM HYDROBROMIDE 20 MG TABLET (FP) PO SCH (09:38)
[2019-05-31] MEDS: LISINOPRIL 10 MG TABLET (FP) PO SCH (09:38)
[2019-05-31] MEDS: NAPROXEN 500 MG TABLET (FP) PO SCH (09:38)
[2019-05-31] MEDS: FAMOTIDINE 20 MG TABLET PO SCH (09:38)
[2019-05-31] MEDS: amLODIPine BESYLATE 10 MG TABLET (FP) PO SCH (09:39)
[2019-05-31] MEDS: PRENATAL VITAMINS W/ FOLIC ACID TABLET (FP) PO SCH (09:39)
[2019-05-31] MEDS: LIDOCAINE 5% TOPICAL PATCH TP SCH (09:40)
[2019-05-31 09:44] VITALS: BP 129/79; PULSE 91
[2019-05-31] MEDS: NICOTINE 14 MG/24 HOURS TOPICAL PATCH TD SCH (09:44)
== END 2019-05-31 09:50 | disposition home or self-care (01) | DRG 897 ==
LOC: YASAS 10:14 → Y3N 13:17
PROVIDERS: ADMIT Allergy & Immunology; ATTEND Allergy & Immunology
PROC: HZ2ZZZZ Detoxification Services for Substance Abuse Treatment (ICD-10-PCS; principal; 2019-05-26)
DX: F10.230 Alcohol dependence with withdrawal, uncomplicated (principal); Z68.43 Body mass index [BMI] 50.0-59.9, adult; F17.210 Nicotine dependence, cigarettes, uncomplicated; F32.9 Major depressive disorder, single episode, unspecified; I10 Essential (primary) hypertension; E78.5 Hyperlipidemia, unspecified; E78.00 Pure hypercholesterolemia, unspecified; J45.909 Unspecified asthma, uncomplicated; M17.0 Bilateral primary osteoarthritis of knee; M54.5 Low back pain; G89.29 Other chronic pain; G47.30 Sleep apnea, unspecified; E66.01 Morbid (severe) obesity due to excess calories; Z98.890 Other specified postprocedural states; Z99.89 Dependence on other enabling machines and devices; Z87.01 Personal history of pneumonia (recurrent)
CPT/HCPCS: 36415; 71046-TC-FY; 80053; 80061; 81003; 81025; 82962; 83721; 85027; 86593; 90732; 93005; 93010; G0009; J0735

== ENCOUNTER 2023-09-07 12:15 | Inpatient (IN) | payer OTHER ==
[2023-09-07 13:01] VITALS: BMI 47.7
[2023-09-07] MEDS ORDERED: NALOXONE HCL (KLOXXADO) 8 MG SPRAY NS PRN (14:37)
[2023-09-07] MEDS ORDERED: NALOXONE HCL 0.4 MG/ML VIAL IM PRN (14:37)
[2023-09-07] MEDS ORDERED: MAG HYDROX/AL HYDROX/SIMETH 30 ML UNIT-DOSE CUP PO PRN (14:37)
[2023-09-07] MEDS ORDERED: guaiFENesin 600 MG TABLET.ER (FP) PO PRN (14:37)
[2023-09-07] MEDS ORDERED: chlordiazePOXIDE HCL 25 MG CAPSULE PO PRN (14:37)
[2023-09-07] MEDS ORDERED: QUEtiapine FUMARATE 25 MG TABLET PO PRN (14:37)
[2023-09-07] MEDS ORDERED: MAGNESIUM HYDROX 2400MG/30ML ORAL SUSPENSION 30 ML CUP PO PRN (14:37)
[2023-09-07] MEDS ORDERED: BENZONATATE 200 MG CAPSULE PO PRN (14:37)
[2023-09-07] MEDS ORDERED: BENZOCAINE/MENTHOL (CHLORASEPTIC ) LOZENGE MM PRN (14:37)
[2023-09-07] MEDS ORDERED: DICYCLOMINE HCL 10 MG CAPSULE PO PRN (14:37)
[2023-09-07] MEDS ORDERED: ACETAMINOPHEN 325 MG TABLET (FP) PO PRN (14:37)
[2023-09-07] MEDS ORDERED: BISMUTH SUBSALICYLATE 262 MG/15 ML BTL PO PRN (14:37)
[2023-09-07] MEDS ORDERED: POLYETHYLENE GLYCOL (HEALTHYLAX) 3350 17 GM PACKET PO PRN (14:37)
[2023-09-07] MEDS ORDERED: METHOCARBAMOL 500 MG TABLET ONE (15:07)
[2023-09-07] MEDS: MAG HYDROX/AL HYDROX/SIMETH 30 ML UNIT-DOSE CUP PO PRN (15:23)
[2023-09-07] MEDS: METHOCARBAMOL 500 MG TABLET PO PRN (15:24)
[2023-09-07] MEDS: chlordiazePOXIDE HCL 25 MG CAPSULE PO SCH (17:15)
[2023-09-07] MEDS: ONDANSETRON *ODT* 4 MG TABLET SL PRN (17:16)
[2023-09-07] MEDS: ALBUTEROL SO4 HFA INHALER IH PRN (17:21)
[2023-09-07] MEDS: IBUPROFEN 600 MG TABLET (FP) PO PRN (18:15)
[2023-09-07] MEDS: MELATONIN 5 MG TABLETS PO SCH (22:43)
[2023-09-07] MEDS: ATORVASTATIN CA 20 MG TABLET (FP) PO SCH (22:43)
[2023-09-07] MEDS: THIAMINE 100 MG TABLET PO SCH (22:43)
[2023-09-07] MEDS: FLUTICASONE/SALMETEROL (WIXELA) 100 MCG/50 MCG DISKUS IH SCH (22:44)
[2023-09-08] MEDS: hydrOXYzine PAMOATE 25 MG CAPSULE (FP) PO PRN (05:53)
[2023-09-08] MEDS: HYDROCHLOROTHIAZIDE 25 MG TABLET (FP) PO SCH (09:32)
[2023-09-08] MEDS: PRENATAL VITAMINS W/ FOLIC ACID TABLET (FP) PO SCH (09:32)
[2023-09-08] MEDS: CITALOPRAM HYDROBROMIDE 20 MG TABLET PO SCH (09:32)
[2023-09-08] MEDS: amLODIPine BESYLATE 10 MG TABLET (FP) PO SCH (09:32)
[2023-09-08] MEDS: LOSARTAN POTASSIUM 50 MG TABLET PO SCH (09:32)
[2023-09-08] MEDS: PANTOPRAZOLE 40 MG TABLET PO SCH (09:32)
[2023-09-08] MEDS: NICOTINE 14 MG/24 HOURS TOPICAL PATCH TD SCH (10:06)
[2023-09-08 11:51] LABS: CHLORIDE 95 mmol/L (98-107); POTASSIUM 3.4 mmol/L (3.5-5.1); SODIUM 135 mmol/L (136-145)
[2023-09-08 11:52] LABS: HEMATOCRIT 35.5 % (32.4-45.2); MCH 30.1 pg (25.7-33.7); MEAN CELL VOLUME 88.5 fl (80-96); MEAN PLT VOLUME 8.3 fl (7.5-11.1); PLATELET COUNT 194 10^3/uL (134-434); RDW 16.5 % (11.6-15.6); WHITE BLOOD COUNT 5.5 K/mm3 (4.0-10.0)
[2023-09-08 11:55] LABS: ALBUMIN 2.7 g/dl (3.4-5.0); ANION GAP 6 mmol/L (4-13); BLOOD UREA NITROGEN 15.9 mg/dL (7-18); CO2 34 mmol/L (21-32); GLUCOSE,RANDOM 118 mg/dL (74-106)
[2023-09-08 11:57] LABS: CREATININE 0.9 mg/dL (0.55-1.3); SGOT/AST 67 U/L (15-37); SGPT/ALT 81 U/L (13-61)
[2023-09-08 11:59] LABS: BILIRUBIN,TOTAL 0.7 mg/dL (0.2-1)
[2023-09-08 12:00] LABS: ALK PHOS 117 U/L (45-117)
[2023-09-08 12:47] LABS: HIV INTERPRETATION NEGATIVE (NEGATIVE)
[2023-09-08] MEDS: IBUPROFEN 400 MG TABLET (FP) PO PRN (17:32)
[2023-09-08] MEDS: SUVOREXANT 10 MG TABLET PO PRN (23:05)
[2023-09-09] MEDS: chlordiazePOXIDE HCL 25 MG CAPSULE PO SCH (06:00)
[2023-09-09] MEDS: LOPERAMIDE HCL 2 MG CAPSULE PO PRN (15:25)
[2023-09-10] MEDS ORDERED: chlordiazePOXIDE HCL 10 MG CAPSULE PO PRN
[2023-09-10] MEDS: chlordiazePOXIDE HCL 10 MG CAPSULE PO SCH (05:39)
[2023-09-11] MEDS: chlordiazePOXIDE HCL 10 MG CAPSULE PO SCH (05:37)
[2023-09-11] MEDS: POTASSIUM CHLORIDE ORAL LIQUID 20 MEQ/15 ML PO ONE (09:46)
[2023-09-11] MEDS: LISINOPRIL 10 MG TABLET PO SCH (09:47)
[2023-09-11] MEDS: CEPHALEXIN MONOHYDRATE 500 MG CAPSULE (UD) PO SCH (11:44)
[2023-09-11] MEDS: predniSONE 20 MG TABLET (UD) PO ONE (12:16)
[2023-09-11] MEDS: LACTULOSE 20 GM/30 ML UDC (FOR ORAL USE ONLY) PO SCH (13:11)
[2023-09-11] MEDS: SUVOREXANT 10 MG TABLET PO ONE (22:25)
[2023-09-12] MEDS: chlordiazePOXIDE HCL 10 MG CAPSULE PO ONE (05:25)
[2023-09-12] MEDS: predniSONE 20 MG TABLET (UD) PO ONE (05:25)
[2023-09-12 10:48] VITALS: BP 154/104; PULSE 104; RESP 20; TEMP 97.7
== END 2023-09-12 12:20 | disposition home or self-care (01) | DRG 775 ==
LOC: YASAS 12:15 → Y6N 14:19
PROVIDERS: ADMIT Allergy & Immunology; ATTEND Surgery
PROC: HZ2ZZZZ Detoxification Services for Substance Abuse Treatment (ICD-10-PCS; principal; 2023-09-07)
DX: F10.230 Alcohol dependence with withdrawal, uncomplicated (principal); F17.210 Nicotine dependence, cigarettes, uncomplicated; F10.280 Alcohol dependence with alcohol-induced anxiety disorder; F10.282 Alcohol dependence with alcohol-induced sleep disorder; F34.1 Dysthymic disorder; F32.9 Major depressive disorder, single episode, unspecified; F41.9 Anxiety disorder, unspecified; E72.20 Disorder of urea cycle metabolism, unspecified; E87.6 Hypokalemia; E78.5 Hyperlipidemia, unspecified; E78.00 Pure hypercholesterolemia, unspecified; I10 Essential (primary) hypertension; J45.20 Mild intermittent asthma, uncomplicated; J32.9 Chronic sinusitis, unspecified; K21.9 Gastro-esophageal reflux disease without esophagitis; M17.0 Bilateral primary osteoarthritis of knee; R73.9 Hyperglycemia, unspecified; Z62.810 Personal history of physical and sexual abuse in childhood; Z63.8 Other specified problems related to primary support group; Z86.19 Personal history of other infectious and parasitic diseases; Z99.89 Dependence on other enabling machines and devices
CPT/HCPCS: 36415; 71045-TC-FY; 80053; 80307; 81025; 82140; 83036; 84132; 85027; 86593; 86780; 87389; 93005; 93010; Q0162